=== PATIENT | female | born 1980 | race African-American/Black ===

== ENCOUNTER 2021-01-27 16:25 | Emergency (ER) | payer OTHER ==
[2021-01-27] MEDS ORDERED: Morphine 4 MG/ML VIAL ONE (17:11)
[2021-01-27] MEDS ORDERED: Ondansetron PF 4 MG/2 ML Vial ONE (17:11)
[2021-01-27 17:44] LABS: #Monocytes 0.9 10x3/uL (0.0-1.1); #Neutrophils 10.1 10x3/uL (1.5-8.4); %Basophils 0.2 % (0.0-2.0); %Eosinophils 0.3 % (0.0-6.0); %Lymphocytes 22.8 % (18.0-47.0); %Monocytes 6.2 % (0.0-10.0); %Neutrophils 70.2 % (40.0-75.0); Hemoglobin 9.9 g/dL (12.0-15.5); Mean Corpuscular HGB CONC 30.7 g/dL (32.0-36.0); Mean Corpuscular Hemoglobin 22.1 pg (27.0-33.0); Mean Corpuscular Volume 71.9 fl (81.6-98.3); Mean Platelet Volume 8.5 fl (7.4-10.4); Platelet Count 615 10x3/uL (150-450); RBC Distribution Width 17.2 % (11.5-14.5); Red Blood Cell (RBC) Count 4.48 10x6/uL (3.90-5.03); White Blood Cell (WBC) Count 14.4 10x3/uL (3.5-10.5)
[2021-01-27 17:53] LABS: BHCG - Serum Negative (NEGATIVE); Pregs Control Background? CLEAR/WHITE (CLR/WHITE); Pregs Control Bar Appear? YES (CONTROL BAR)
[2021-01-27 17:58] LABS: ALT (SGPT) 12 U/L (8-55); AST (SGOT) 7 U/L (5-34); Albumin 3.7 g/dL (3.5-5.0); Alkaline Phosphatase 69 U/L (40-110); Anion Gap 13 mmol/L (10-20); BUN (Urea Nitrogen) 9 mg/dL (7.0-18.7); Bilirubin, Total 0.2 mg/dL (0.2-1.2); Calc. Creatinine Clearance 0 mL/min (70-130); Calcium 9.1 mg/dL (7.8-10.44); Carbon Dioxide 23 mmol/L (22-29); Chloride 105 mmol/L (98-107); Globulin 4.6 g/dL (2.4-3.5); Glucose 228 mg/dL (70-105); Lipase 55 U/L (8-78); Potassium 3.6 mmol/L (3.5-5.1); Protein, Total 8.3 g/dL (6.0-8.3); Sodium 137 mmol/L (136-145)
[2021-01-27 18:09] LABS: Bilirubin Neg (Negative); Blood, Urine Negative (Negative); Clarity Clear (Clear); Glucose, Urine (Dipstick) Normal (Negative); Ketone, Urine Negative (Negative); Leukocyte 25 (Negative); Nitrite Negative (Negative); Protein, Urine (Dipstick) 30 mg/dl (Neg-Trace); Specific Gravity, Urine 1.005 (1.002-1.036); Urobilinogen Normal mg/dL (Less than 2)
[2021-01-27 18:17] LABS: Bacteria/HPF 1+ HPF (None Seen); Mucous/LPF 2+ LPF (<2+); RBC/HPF None Seen HPF (0-3); Squamous Epithelial 0-3 HPF (0-3); WBC/HPF 0-3 HPF (0-3)
== END 2021-01-27 19:53 | disposition home or self-care (01) ==
LOC: CSHERS 16:25
DX: L08.9 Local infection of the skin and subcutaneous tissue, unspecified (principal); E11.9 Type 2 diabetes mellitus without complications; I25.2 Old myocardial infarction; Z79.4 Long term (current) use of insulin; Z86.73 Personal history of transient ischemic attack (TIA), and cerebral infarction without residual deficits; Z79.84 Long term (current) use of oral hypoglycemic drugs; Z79.899 Other long term (current) drug therapy
CPT/HCPCS: 71045; 74177; 80053; 81003; 81015; 83690; 84484; 84703; 85025; 93005; 96374; 96375; J2270; J2405

== ENCOUNTER 2021-01-28 15:50 | Inpatient (IN) | payer OTHER ==
[2021-01-28] MEDS ORDERED: LIDOCAINE PO SCH (17:00)
[2021-01-28] MEDS ORDERED: MAGNESIUM HYDROXIDE PO SCH (17:00)
[2021-01-28] MEDS ORDERED: [UNRECOGNIZED DRUG - OTHER] PO SCH (17:00)
[2021-01-28] MEDS ORDERED: Mag-Al Plus 1200 MG/1200 MG/120 MG/30 ML UDCUP ONE (17:09)
[2021-01-28] MEDS ORDERED: Ondansetron PF 4 MG/2 ML Vial ONE (17:09)
[2021-01-28] MEDS ORDERED: Lidocaine Viscous Sol 2% 15 ml UD Cup ONE (17:09)
[2021-01-28] MEDS ORDERED: Morphine 4 MG/ML VIAL ONE ×2 (17:09→18:56)
[2021-01-28] MEDS ORDERED: Pantoprazole 40 MG VIAL ONE (17:10)
[2021-01-28 17:16] LABS: #Monocytes 0.8 10x3/uL (0.0-1.1); #Neutrophils 9.6 10x3/uL (1.5-8.4); %Basophils 0.2 % (0.0-2.0); %Eosinophils 0.3 % (0.0-6.0); %Lymphocytes 20.6 % (18.0-47.0); %Monocytes 6.2 % (0.0-10.0); %Neutrophils 72.4 % (40.0-75.0); Hemoglobin 10.3 g/dL (12.0-15.5); Mean Corpuscular HGB CONC 31.7 g/dL (32.0-36.0); Mean Corpuscular Hemoglobin 22.7 pg (27.0-33.0); Mean Corpuscular Volume 71.6 fl (81.6-98.3); Mean Platelet Volume 8.4 fl (7.4-10.4); Platelet Count 639 10x3/uL (150-450); RBC Distribution Width 17.3 % (11.5-14.5); Red Blood Cell (RBC) Count 4.54 10x6/uL (3.90-5.03); White Blood Cell (WBC) Count 13.2 10x3/uL (3.5-10.5)
[2021-01-28 17:34] LABS: ALT (SGPT) 13 U/L (8-55); AST (SGOT) 11 U/L (5-34); Albumin 3.9 g/dL (3.5-5.0); Alkaline Phosphatase 76 U/L (40-110); Anion Gap 15 mmol/L (10-20); BUN (Urea Nitrogen) 7 mg/dL (7.0-18.7); Bilirubin, Total 0.2 mg/dL (0.2-1.2); CK (CPK) 95 U/L (29-168); Calc. Creatinine Clearance 0 mL/min (70-130); Calcium 9.2 mg/dL (7.8-10.44); Carbon Dioxide 20 mmol/L (22-29); Chloride 106 mmol/L (98-107); Globulin 4.2 g/dL (2.4-3.5); Glucose 193 mg/dL (70-105); Lipase 75 U/L (8-78); Potassium 4.1 mmol/L (3.5-5.1); Protein, Total 8.1 g/dL (6.0-8.3); Sodium 137 mmol/L (136-145)
[2021-01-28 18:35] LABS: Bilirubin Neg (Negative); Blood, Urine Negative (Negative); Clarity Clear (Clear); Glucose, Urine (Dipstick) Normal (Negative); Ketone, Urine Negative (Negative); Leukocyte 25 (Negative); Nitrite Negative (Negative); Protein, Urine (Dipstick) Negative (Neg-Trace); Urobilinogen Normal mg/dL (Less than 2)
[2021-01-28 18:45] LABS: Bacteria/HPF None Seen HPF (None Seen); RBC/HPF 0-3 HPF (0-3); Squamous Epithelial 0-3 HPF (0-3); WBC/HPF 0-3 HPF (0-3)
[2021-01-28 21:55] VITALS: BMI 42.2
[2021-01-28] MEDS ORDERED: Morphine 4 MG/ML VIAL SLOW IVP SCH (23:00)
[2021-01-28] MEDS ORDERED: Morphine 4 MG/ML VIAL SLOW IVP PRN (23:34)
[2021-01-28] MEDS ORDERED: Ondansetron PF 4 MG/2 ML Vial IVP PRN (23:37)
[2021-01-28] MEDS ORDERED: Dextrose 5% in Water 1,000 ML IV PRN (23:42)
[2021-01-28] MEDS ORDERED: Dextrose 50% Abboject 50 ML SYRINGE SLOW IVP PRN (23:42)
[2021-01-28] MEDS ORDERED: Sodium Chloride 0.9% 1,000 ML IV SCH (23:45)
[2021-01-28] MEDS ORDERED: VANCOMYCIN 2 GRAM/400 ML BAG 2 GM in Premix Bag 1 BAG IVPB SCH (23:59)
[2021-01-28] MEDS ORDERED: Piperacillin/Tazobactam 3.375 GM in Sodium Chloride 0.9% 100 ML IVPB SCH (23:59)
[2021-01-29] MEDS ORDERED: Piperacillin/Tazobactam 3.375 GM in Sodium Chloride 0.9% 100 ML IVPB SCH ×3 (00:30→12:00)
[2021-01-29] MEDS: HumaLOG 300 UNITS/3 ML VIAL SC PRN ×2 (00:56→20:58)
[2021-01-29] MEDS: Morphine 4 MG/ML VIAL SLOW IVP PRN ×6 (03:09→23:12)
[2021-01-29 04:47] LABS: #Eosinphils 0.1 10x3/uL (0.0-0.5); #Monocytes 0.8 10x3/uL (0.0-1.1); %Basophils 0.2 % (0.0-2.0); %Eosinophils 1.1 % (0.0-6.0); %Lymphocytes 20.8 % (18.0-47.0); %Monocytes 6.8 % (0.0-10.0); %Neutrophils 70.7 % (40.0-75.0); ALT (SGPT) 39 U/L (8-55); AST (SGOT) 57 U/L (5-34); Alkaline Phosphatase 89 U/L (40-110); Anion Gap 13 mmol/L (10-20); BUN (Urea Nitrogen) 5 mg/dL (7.0-18.7); Bilirubin, Total 0.3 mg/dL (0.2-1.2); Calc. Creatinine Clearance 206 mL/min (70-130); Calcium 8.4 mg/dL (7.8-10.44); Carbon Dioxide 20 mmol/L (22-29); Cardiac Risk 5.3 (Less than 4.5); Chloride 109 mmol/L (98-107); Cholesterol 154 mg/dl (< 200 Desired); Glucose 146 mg/dL (70-105); HDL Cholesterol 29 mg/dL (>60 Neg Risk); Hemoglobin 8.9 g/dL (12.0-15.5); LDL Cholesterol, Calculated 101 mg/dL; Lipase 66 U/L (8-78); Magnesium 1.9 mg/dL (1.6-2.6); Mean Corpuscular HGB CONC 30.5 g/dL (32.0-36.0); Mean Corpuscular Hemoglobin 22.2 pg (27.0-33.0); Mean Corpuscular Volume 72.8 fl (81.6-98.3); Mean Platelet Volume 8.5 fl (7.4-10.4); Phosphorus 3.4 mg/dL (2.3-4.7); Platelet Count 509 10x3/uL (150-450); Potassium 3.5 mmol/L (3.5-5.1); RBC Distribution Width 17.5 % (11.5-14.5); Red Blood Cell (RBC) Count 4.01 10x6/uL (3.90-5.03); Sodium 138 mmol/L (136-145); Triglycerides 121 mg/dL (Less than 150); White Blood Cell (WBC) Count 11.3 10x3/uL (3.5-10.5)
[2021-01-29 05:05] LABS: Ferritin 64.19 ng/mL (10-291)
[2021-01-29] MEDS ORDERED: Non-Formulary Medication 1 EACH (Dulaglutide [Trulicity] 1.5 MG/0.5 ML Pen.Injctr) SC SCH (07:45)
[2021-01-29] MEDS: Aspirin 81 mg Enteric Coated Tablet PO SCH (08:24)
[2021-01-29] MEDS: Lactated Ringer's 1,000 ML IV SCH ×3 (08:24→22:18)
[2021-01-29] MEDS: Enoxaparin Sodium 40 MG/0.4 ML SYRINGE SC SCH (08:24)
[2021-01-29] MEDS: Aspirin 300 MG Suppository PR SCH (09:55)
[2021-01-29 11:42] LABS: Hemoglobin A1c 8.9 % (4.0-6.0)
[2021-01-29] MEDS ORDERED: VANCOMYCIN 1.25 GM/250 ML BAG 1.25 GM in Premix Bag 1 BAG IVPB SCH (13:00)
[2021-01-29 17:51] LABS: Amphetamine Not Detected (NotDetected); Barbiturates Screen Not Detected (NotDetected); Benzodiazepine Screen Not Detected (NotDetected); Cocaine Metabolite Screen Not Detected (NotDetected); Methadone Not Detected (NotDetected); Methamphetamine Not Detected (NotDetected); Opiate Screen Detected (NotDetected); Oxycodone Screen Not Detected (NotDetected); Phencyclidine (PCP) Not Detected (NotDetected); THC/Cannabinoid Screen Not Detected (NotDetected); Tricyclic Screen Not Detected (NotDetected)
[2021-01-29] MEDS ORDERED: Ketorolac Tromethamine 30 MG/ML VIAL IVP PRN (18:45)
[2021-01-29] MEDS ORDERED: Acetaminophen 500 MG TAB PO PRN ×2 (18:49→18:50)
[2021-01-29] MEDS ORDERED: Doxycycline 100 MG in Syringe 0 ML IVPB SCH (21:00)
[2021-01-29] MEDS ORDERED: Atorvastatin Calcium 40 MG TAB PO SCH (21:00)
[2021-01-30] MEDS: Morphine 4 MG/ML VIAL SLOW IVP PRN (02:17)
[2021-01-30 04:00] LABS: #Eosinphils 0.1 10x3/uL (0.0-0.5); #Monocytes 0.7 10x3/uL (0.0-1.1); #Neutrophils 7.3 10x3/uL (1.5-8.4); %Basophils 0.2 % (0.0-2.0); %Eosinophils 0.5 % (0.0-6.0); %Lymphocytes 23.8 % (18.0-47.0); %Neutrophils 68.3 % (40.0-75.0); Hemoglobin 9.4 g/dL (12.0-15.5); Mean Corpuscular HGB CONC 31.4 g/dL (32.0-36.0); Mean Corpuscular Hemoglobin 22.4 pg (27.0-33.0); Mean Corpuscular Volume 71.2 fl (81.6-98.3); Mean Platelet Volume 8.5 fl (7.4-10.4); Platelet Count 536 10x3/uL (150-450); RBC Distribution Width 17.2 % (11.5-14.5); White Blood Cell (WBC) Count 10.6 10x3/uL (3.5-10.5)
[2021-01-30 04:21] LABS: ALT (SGPT) 30 U/L (8-55); AST (SGOT) 21 U/L (5-34); Albumin 3.4 g/dL (3.5-5.0); Alkaline Phosphatase 76 U/L (40-110); Anion Gap 14 mmol/L (10-20); BUN (Urea Nitrogen) Less than 4 mg/dL (7.0-18.7); Bilirubin, Total 0.3 mg/dL (0.2-1.2); Calc. Creatinine Clearance 212 mL/min (70-130); Calcium 8.9 mg/dL (7.8-10.44); Carbon Dioxide 20 mmol/L (22-29); Chloride 107 mmol/L (98-107); Globulin 4.3 g/dL (2.4-3.5); Glucose 140 mg/dL (70-105); Potassium 3.5 mmol/L (3.5-5.1); Protein, Total 7.7 g/dL (6.0-8.3); Sodium 137 mmol/L (136-145)
[2021-01-30] MEDS: Enoxaparin Sodium 40 MG/0.4 ML SYRINGE SC SCH (09:11)
[2021-01-30] MEDS: Aspirin 81 mg Enteric Coated Tablet PO SCH (09:17)
[2021-01-30 11:24] VITALS: BP 131/82; TEMP 97.6
[2021-01-30] MEDS ORDERED: HYDROcodone/Acetaminophen 5/325 mg Tablet PO PRN (11:32)
[2021-01-30] MEDS: Aspirin 300 MG Suppository PR SCH (11:42)
== END 2021-01-30 12:09 | disposition home or self-care (01) | DRG 439 ==
LOC: CSHERS 15:50 → CSHTELE 15:51
PROVIDERS: ADMIT Family Medicine; ATTEND Family Medicine
DX: K85.90 Acute pancreatitis without necrosis or infection, unspecified (principal); L03.314 Cellulitis of groin; I50.30 Unspecified diastolic (congestive) heart failure; D64.9 Anemia, unspecified; L73.2 Hidradenitis suppurativa; E11.9 Type 2 diabetes mellitus without complications; Z79.4 Long term (current) use of insulin; Z86.73 Personal history of transient ischemic attack (TIA), and cerebral infarction without residual deficits; Z90.49 Acquired absence of other specified parts of digestive tract; I25.2 Old myocardial infarction; Z86.16 Personal history of COVID-19; Z79.84 Long term (current) use of oral hypoglycemic drugs; Z79.82 Long term (current) use of aspirin; Z79.899 Other long term (current) drug therapy; Z79.2 Long term (current) use of antibiotics; L08.9 Local infection of the skin and subcutaneous tissue, unspecified
CPT/HCPCS: 36415; 36416; 71045; 74177; 76705; 80048; 80053; 80061; 80306; 80307; 81003; 81015; 82247; 82550; 82607; 82728; 82746; 83036; 83605; 83690; 83735; 84075; 84100; 84450; 84460; 84484; 84703; 85025; 93005; 96374; 96375; 96376; C9113; J1650; J1815; J1885; J2270; J2405; J2543; J3370; J3490; J7050; J7120

== ENCOUNTER 2021-01-31 09:32 | Observation (INO) | payer OTHER ==
[2021-01-31 10:43] LABS: #Monocytes 0.6 10x3/uL (0.0-1.1); #Neutrophils 7.9 10x3/uL (1.5-8.4); %Basophils 0.1 % (0.0-2.0); %Eosinophils 0.4 % (0.0-6.0); %Lymphocytes 18.9 % (18.0-47.0); %Monocytes 5.7 % (0.0-10.0); %Neutrophils 74.6 % (40.0-75.0); Hemoglobin 9.3 g/dL (12.0-15.5); Mean Corpuscular HGB CONC 30.6 g/dL (32.0-36.0); Mean Platelet Volume 8.3 fl (7.4-10.4); Platelet Count 550 10x3/uL (150-450); RBC Distribution Width 17.3 % (11.5-14.5); Red Blood Cell (RBC) Count 4.22 10x6/uL (3.90-5.03); White Blood Cell (WBC) Count 10.6 10x3/uL (3.5-10.5)
[2021-01-31 10:55] LABS: ALT (SGPT) 21 U/L (8-55); AST (SGOT) 12 U/L (5-34); Albumin 3.7 g/dL (3.5-5.0); Alkaline Phosphatase 71 U/L (40-110); Anion Gap 12 mmol/L (10-20); BUN (Urea Nitrogen) 4 mg/dL (7.0-18.7); Bilirubin, Total 0.2 mg/dL (0.2-1.2); Calc. Creatinine Clearance 0 mL/min (70-130); Calcium 9.2 mg/dL (7.8-10.44); Carbon Dioxide 23 mmol/L (22-29); Chloride 105 mmol/L (98-107); Globulin 4.4 g/dL (2.4-3.5); Glucose 197 mg/dL (70-105); Lipase 108 U/L (8-78); Potassium 3.6 mmol/L (3.5-5.1); Protein, Total 8.1 g/dL (6.0-8.3); Sodium 136 mmol/L (136-145)
[2021-01-31] MEDS ORDERED: Ondansetron PF 4 MG/2 ML Vial ONE (10:56)
[2021-01-31 11:08] LABS: Bilirubin Neg (Negative); Blood, Urine Negative (Negative); Clarity Clear (Clear); Glucose, Urine (Dipstick) Normal (Negative); Ketone, Urine Negative (Negative); Leukocyte 25 (Negative); Nitrite Negative (Negative); Pregnancy Test - Urine (BHCG) Negative (Negative); Protein, Urine (Dipstick) Negative (Neg-Trace); Specific Gravity 1.005 (1.002-1.036); Specific Gravity, Urine 1.005 (1.002-1.036); Urobilinogen Normal mg/dL (Less than 2)
[2021-01-31 11:09] LABS: Pregu Control Background? CLEAR/WHITE (CLR/WHITE); Pregu Control Bar Appear? YES (CONTROL BAR)
[2021-01-31 11:33] LABS: RBC/HPF 0-3 HPF (0-3); Squamous Epithelial 0-3 HPF (0-3); WBC/HPF 0-3 HPF (0-3)
[2021-01-31] MEDS ORDERED: Morphine 4 MG/ML VIAL ONE (11:33)
[2021-01-31 11:34] LABS: Bacteria/HPF Rare-Few HPF (None Seen)
[2021-01-31] MEDS ORDERED: Ketorolac Tromethamine 30 MG/ML VIAL ONE (12:49)
[2021-01-31] MEDS ORDERED: HumaLOG 300 UNITS/3 ML VIAL SC PRN (12:57)
[2021-01-31] MEDS ORDERED: Acetaminophen 325 MG TAB PO PRN (12:57)
[2021-01-31] MEDS ORDERED: Bisacodyl 10 MG SUPP PR PRN (12:57)
[2021-01-31] MEDS ORDERED: Dextrose 5% in Water 1,000 ML IV PRN (12:57)
[2021-01-31] MEDS ORDERED: Dextrose 50% Abboject 50 ML SYRINGE SLOW IVP PRN (12:57)
[2021-01-31] MEDS ORDERED: Bisacodyl 5 MG TAB PO PRN (12:57)
[2021-01-31] MEDS ORDERED: Senokot S 8.6-50 MG TAB PO PRN (12:57)
[2021-01-31] MEDS ORDERED: Ondansetron PF 4 MG/2 ML Vial IVP PRN (12:57)
[2021-01-31] MEDS: Sodium Chloride 0.9% 1,000 ML IV SCH ×3 (14:32→20:54)
[2021-01-31 14:58] VITALS: BMI 41.8
[2021-01-31] MEDS: Acetaminophen 325 MG TAB PO SCH ×2 (16:00→20:50)
[2021-01-31] MEDS ORDERED: oxyCODONE 5 MG TAB PO PRN (16:04)
[2021-01-31] MEDS ORDERED: Morphine 4 MG/ML VIAL SLOW IVP PRN (16:05)
[2021-01-31] MEDS ORDERED: Polyethylene Glycol 3350 17 GM Packet PO SCH (17:30)
[2021-01-31] MEDS: Ketorolac Tromethamine 30 MG/ML VIAL IVP SCH (18:02)
[2021-01-31] MEDS: Famotidine 20 MG TAB PO SCH (20:51)
[2021-01-31] MEDS: Senokot S 8.6-50 MG TAB PO SCH (20:51)
[2021-01-31] MEDS: Atorvastatin Calcium 40 MG TAB PO SCH (20:53)
[2021-01-31] MEDS ORDERED: CLINDAMYCIN PHOSPHATE TOP SCH (21:00)
[2021-01-31] MEDS ORDERED: Doxycycline 100 MG CAP PO SCH (21:00)
[2021-02-01] MEDS: Ketorolac Tromethamine 30 MG/ML VIAL IVP SCH ×4 (00:30→19:28)
[2021-02-01] MEDS: Sodium Chloride 0.9% 1,000 ML IV SCH ×6 (00:32→21:53)
[2021-02-01] MEDS: Acetaminophen 325 MG TAB PO SCH ×7 (01:26→21:51)
[2021-02-01 05:19] LABS: Iron 22 ug/dL (50-170); Iron Binding Capacity, Total 265 mcg/dL (265-497)
[2021-02-01 05:25] LABS: #Eosinphils 0.2 10x3/uL (0.0-0.5); #Monocytes 0.6 10x3/uL (0.0-1.1); %Basophils 0.3 % (0.0-2.0); %Eosinophils 2.3 % (0.0-6.0); %Lymphocytes 26.2 % (18.0-47.0); %Monocytes 7.9 % (0.0-10.0); Hemoglobin 8.1 g/dL (12.0-15.5); Mean Corpuscular HGB CONC 30.7 g/dL (32.0-36.0); Mean Corpuscular Hemoglobin 22.4 pg (27.0-33.0); Mean Corpuscular Volume 73.1 fl (81.6-98.3); Mean Platelet Volume 8.5 fl (7.4-10.4); Platelet Count 459 10x3/uL (150-450); RBC Distribution Width 17.5 % (11.5-14.5); Red Blood Cell (RBC) Count 3.61 10x6/uL (3.90-5.03)
[2021-02-01 05:28] LABS: ALT (SGPT) 19 U/L (8-55); AST (SGOT) 18 U/L (5-34); Albumin 3.2 g/dL (3.5-5.0); Alkaline Phosphatase 59 U/L (40-110); Anion Gap 10 mmol/L (10-20); BUN (Urea Nitrogen) 4 mg/dL (7.0-18.7); Bilirubin, Total 0.2 mg/dL (0.2-1.2); Calc. Creatinine Clearance 214 mL/min (70-130); Calcium 8.3 mg/dL (7.8-10.44); Carbon Dioxide 21 mmol/L (22-29); Chloride 110 mmol/L (98-107); Globulin 3.8 g/dL (2.4-3.5); Glucose 145 mg/dL (70-105); Iron 23 ug/dL (50-170); Iron Binding Capacity, Total 271 mcg/dL (265-497); Magnesium 1.6 mg/dL (1.6-2.6); Phosphorus 3.6 mg/dL (2.3-4.7); Potassium 3.4 mmol/L (3.5-5.1); Sodium 138 mmol/L (136-145)
[2021-02-01] MEDS: Potassium Chloride 20 MEQ in Premix Bag 1 BAG IVPB SCH ×2 (08:21→09:52)
[2021-02-01] MEDS ORDERED: traZODone HCl 50 MG TAB PO PRN (08:55)
[2021-02-01] MEDS: Lisinopril 5 MG TAB PO SCH (09:22)
[2021-02-01] MEDS: Aspirin 81 mg Enteric Coated Tablet PO SCH (09:22)
[2021-02-01] MEDS: Polyethylene Glycol 3350 17 GM Packet PO SCH (09:22)
[2021-02-01] MEDS: Senokot S 8.6-50 MG TAB PO SCH ×2 (09:22→21:52)
[2021-02-01] MEDS: Famotidine 20 MG TAB PO SCH ×2 (09:22→21:51)
[2021-02-01] MEDS: metFORMIN 500 MG TAB PO SCH ×2 (09:22→17:29)
[2021-02-01] MEDS: Enoxaparin Sodium 40 MG/0.4 ML SYRINGE SC SCH (09:22)
[2021-02-01] MEDS ORDERED: Simethicone Chewable 80 MG TAB PO PRN (11:29)
[2021-02-01] MEDS ORDERED: diphenhydrAMINE 30 GM TUBE TOP PRN (15:10)
[2021-02-01] MEDS ORDERED: Nicotine 21 MG PATCH TD SCH (16:00)
[2021-02-01] MEDS ORDERED: Melatonin 3 MG TAB PO SCH (21:00)
[2021-02-01] MEDS: Atorvastatin Calcium 40 MG TAB PO SCH (21:52)
[2021-02-02] MEDS: Ketorolac Tromethamine 30 MG/ML VIAL IVP SCH ×2 (00:44→06:21)
[2021-02-02] MEDS: Sodium Chloride 0.9% 1,000 ML IV SCH ×2 (00:46→06:19)
[2021-02-02] MEDS: Acetaminophen 325 MG TAB PO SCH ×5 (03:27→15:38)
[2021-02-02 05:11] LABS: #Eosinphils 0.2 10x3/uL (0.0-0.5); #Monocytes 0.5 10x3/uL (0.0-1.1); #Neutrophils 5.1 10x3/uL (1.5-8.4); %Basophils 0.2 % (0.0-2.0); %Eosinophils 1.8 % (0.0-6.0); %Lymphocytes 29.3 % (18.0-47.0); %Neutrophils 62.5 % (40.0-75.0); Hemoglobin 7.7 g/dL (12.0-15.5); Mean Corpuscular HGB CONC 31.6 g/dL (32.0-36.0); Mean Corpuscular Hemoglobin 22.5 pg (27.0-33.0); Mean Corpuscular Volume 71.3 fl (81.6-98.3); Mean Platelet Volume 8.5 fl (7.4-10.4); Platelet Count 421 10x3/uL (150-450); RBC Distribution Width 17.7 % (11.5-14.5); Red Blood Cell (RBC) Count 3.42 10x6/uL (3.90-5.03); White Blood Cell (WBC) Count 8.2 10x3/uL (3.5-10.5)
[2021-02-02 05:23] LABS: ALT (SGPT) 16 U/L (8-55); AST (SGOT) 12 U/L (5-34); Albumin 2.9 g/dL (3.5-5.0); Alkaline Phosphatase 52 U/L (40-110); Anion Gap 11 mmol/L (10-20); BUN (Urea Nitrogen) Less than 4 mg/dL (7.0-18.7); Bilirubin, Total 0.1 mg/dL (0.2-1.2); Calc. Creatinine Clearance 207 mL/min (70-130); Calcium 8.2 mg/dL (7.8-10.44); Carbon Dioxide 20 mmol/L (22-29); Chloride 110 mmol/L (98-107); Globulin 3.4 g/dL (2.4-3.5); Glucose 187 mg/dL (70-105); Magnesium 1.5 mg/dL (1.6-2.6); Potassium 3.5 mmol/L (3.5-5.1); Protein, Total 6.3 g/dL (6.0-8.3); Sodium 137 mmol/L (136-145)
[2021-02-02] MEDS ORDERED: Ferrous Sulfate 325 MG TAB PO SCH (08:00)
[2021-02-02] MEDS: metFORMIN 500 MG TAB PO SCH (08:39)
[2021-02-02] MEDS: Famotidine 20 MG TAB PO SCH (08:39)
[2021-02-02] MEDS: Enoxaparin Sodium 40 MG/0.4 ML SYRINGE SC SCH (08:39)
[2021-02-02] MEDS: Aspirin 81 mg Enteric Coated Tablet PO SCH (08:40)
[2021-02-02] MEDS: Lisinopril 5 MG TAB PO SCH (08:40)
[2021-02-02] MEDS: Polyethylene Glycol 3350 17 GM Packet PO SCH (08:40)
[2021-02-02] MEDS: Senokot S 8.6-50 MG TAB PO SCH (08:40)
[2021-02-02] MEDS ORDERED: Ibuprofen 800 MG TAB PO SCH (12:00)
[2021-02-02 13:00] VITALS: BP 183/86; TEMP 98
== END 2021-02-02 16:36 | disposition home or self-care (01) ==
LOC: SUATTDRO 09:32 → CSHERS 09:32 → CSHTELE 13:45
PROVIDERS: ADMIT Internal Medicine; ATTEND Family Medicine
DX: K85.90 Acute pancreatitis without necrosis or infection, unspecified (principal); L73.2 Hidradenitis suppurativa; E11.9 Type 2 diabetes mellitus without complications; Z79.4 Long term (current) use of insulin; K59.00 Constipation, unspecified; Z86.73 Personal history of transient ischemic attack (TIA), and cerebral infarction without residual deficits; I25.2 Old myocardial infarction; D53.9 Nutritional anemia, unspecified; Z90.49 Acquired absence of other specified parts of digestive tract; Z87.891 Personal history of nicotine dependence; E66.01 Morbid (severe) obesity due to excess calories
CPT/HCPCS: 36416; 74177; 80053; 81003; 81015; 81025; 83540; 83550; 83690; 83735; 84100; 85025; 96372; 96374; 96375; 96376; G0378; J1650; J1815; J1885; J2270; J2405; J3480; J3490; J7050